=== PATIENT | male | born 1990 | race Caucasian/White ===

== ENCOUNTER 2017-05-16 04:37 | Emergency (ER) | payer OTHER ==
[2017-05-16 05:10] LABS: BASOPHILS 0.6 % (0-2); EOSINOPHILS 14.6 % (0-7); HEMATOCRIT 42.7 % (42.0-54.0); HEMOGLOBIN 14.8 g/dL (13.5-17.5); IMMATURE GRANULOCYTES 0.1 % (0-5); LYMPHOCYTES 32.5 % (15-50); MCH 31.6 pg (26.0-34.0); MCHC 34.7 g/dL (31.0-37.0); MCV 91.2 fL (80.0-100.0); MEAN PLATELET VOLUME 9.6 fL (7.4-10.4); MONOCYTES 8.7 % (2-11); NEUTROPHILS 43.5 % (40-80); PLATELET COUNT 228 10x3/uL (130-400); RBC 4.68 10x6/uL (4.20-6.10); RDW 13.2 % (11.5-14.5); WBC 6.9 10x3/uL (4.8-10.8)
[2017-05-16 05:34] LABS: ALKALINE PHOSPHATASE 70 U/L (46-116); ALT (SGPT) 25 U/L (10-68); BILIRUBIN - TOTAL 0.56 mg/dL (0.2-1.3); CALC OSMOLALITY 278 mosm/kg (275-300); CALCIUM 9.1 mg/dL (8.5-10.1); CARBON DIOXIDE 26.8 mmol/L (21.0-32.0); CHLORIDE - SERUM 102 mmol/L (98-107); CREATININE - SERUM 0.9 mg/dL (0.6-1.3); GLUCOSE 105 mg/dL (74-106); POTASSIUM - SERUM 3.8 mmol/L (3.5-5.1); PROTEIN - SERUM 7.5 g/dL (6.4-8.2); SODIUM 139 mmol/L (136-145); UREA NITROGEN 14 mg/dL (7-18); eGFR NON AFRICAN AMERICAN > 90 mL/min (90-120)
[2017-05-16 05:45] LABS: CHOL - HDL RATIO 3.3 ratio (2.3-4.9); CHOLESTEROL, TOTAL 153 mg/dL (0-200); CKMB 1.1 U/L (0.0-3.6); CREATINE KINASE 121 UL (21-232); HDL CHOLESTEROL 47 mg/dL (32-96); LDL CHOLESTEROL 70 mg/dL (0-100); LDL-HDL RATIO 1.5 ratio (1.5-3.5); TRIGLYCERIDE 180 mg/dL (30-200)
[2017-05-16 05:46] LABS: TROPONIN-I < 0.017 ng/mL (0.000-0.060)
== END 2017-05-16 06:05 | disposition home or self-care (01) ==
LOC: D.ER 04:37
PROVIDERS: Emergency Medicine
DX: R07.9 Chest pain, unspecified (principal); Q24.9 Congenital malformation of heart, unspecified; F17.200 Nicotine dependence, unspecified, uncomplicated; I45.2 Bifascicular block

== ENCOUNTER 2017-10-28 15:42 | Emergency (ER) | payer OTHER ==
[~2017-10-28] VITALS: Ht 177.8 cm; Wt 68.2 kg
[2017-10-28 16:07] VITALS: BP 140/71; Ht 177.8 cm; Wt 68.2 kg
[2017-10-28] MEDS ORDERED: BACTRIM DS TABL1 TAB PO (19:17)
[2017-10-28] MEDS ORDERED: VIBRAMYCIN 100100 MG PO (19:17)
[2017-10-28] MEDS ORDERED: HYDROCODONE-APA1 TAB PO (19:17)
== END 2017-10-28 19:24 | disposition home or self-care (01) ==
LOC: D.ER 15:42
DX: L02.31 Cutaneous abscess of buttock (principal)

== ENCOUNTER 2018-05-26 21:16 | Emergency (ER) | payer OTHER ==
[~2018-05-26] VITALS: Ht 177.8 cm; Wt 68.2 kg
[~2018-05-26 21:16] MED LIST: BACTRIM DS TABL1 TAB PO; HYDROCODONE-APA1 TAB PO; VIBRAMYCIN 100100 MG PO
[2018-05-26 21:19] VITALS: Ht 177.8 cm; Wt 68.2 kg
[2018-05-26 21:46] LABS: APTT 33.7 SECONDS (22.8-39.4); INR 1.07 (0.85-1.17); PROTIME 13.4 SECONDS (11.6-15.0)
[2018-05-26 21:47] LABS: D-DIMER-QUANTITATIVE 0.76 ug/mLFEU (0.20-0.54)
[2018-05-26 21:48] LABS: BASOPHILS 0.5 % (0-2); EOSINOPHILS 5.9 % (0-7); HEMATOCRIT 43.6 % (42.0-54.0); HEMOGLOBIN 15.6 g/dL (13.5-17.5); IMMATURE GRANULOCYTES 0.3 % (0-5); LYMPHOCYTES 17.9 % (15-50); MCH 31.1 pg (26.0-34.0); MCHC 35.8 g/dL (31.0-37.0); MCV 86.9 fL (80.0-100.0); MEAN PLATELET VOLUME 9.9 fL (7.4-10.4); MONOCYTES 7.7 % (2-11); NEUTROPHILS 67.7 % (40-80); RBC 5.02 10x6/uL (4.20-6.10); RDW 14.2 % (11.5-14.5); WBC 13.2 10x3/uL (4.8-10.8)
[2018-05-26 21:49] LABS: PLATELET COUNT 325 10x3/uL (130-400)
[2018-05-26 21:55] LABS: ALBUMIN 4.5 g/dL (3.4-5.0); ALKALINE PHOSPHATASE 65 U/L (46-116); ALT (SGPT) 48 U/L (10-68); BILIRUBIN - TOTAL 1.27 mg/dL (0.2-1.3); CALC OSMOLALITY 280 mosm/kg (275-300); CARBON DIOXIDE 18.4 mmol/L (21.0-32.0); CHLORIDE - SERUM 102 mmol/L (98-107); CREATININE - SERUM 0.9 mg/dL (0.6-1.3); GLUCOSE 83 mg/dL (74-106); POTASSIUM - SERUM 3.8 mmol/L (3.5-5.1); PROTEIN - SERUM 9.2 g/dL (6.4-8.2); SODIUM 140 mmol/L (136-145); UREA NITROGEN 22 mg/dL (7-18); eGFR NON AFRICAN AMERICAN > 90 mL/min (90-120)
[2018-05-26 22:08] LABS: CREATINE KINASE 191 UL (21-232); TROPONIN-I < 0.017 ng/mL (0.000-0.060)
[2018-05-27 03:08] VITALS: BP 134/75
== END 2018-05-27 03:10 | disposition home or self-care (01) ==
LOC: D.ER 21:16
PROVIDERS: Family Medicine
DX: R07.89 Other chest pain (principal); Z86.79 Personal history of other diseases of the circulatory system; F17.200 Nicotine dependence, unspecified, uncomplicated